=== PATIENT | male | born 1995 | race Two or more races ===

== ENCOUNTER 2023-12-22 15:47 | Emergency (ER) | payer SELFPAY ==
[2023-12-22 15:58] VITALS: BP 127/87; PULSE 77; TEMP 36.5; O2SAT 99; BMI 29.8
--- NOTE | 2023-12-22 16:16 | XR_ITS ---
The [address] [address] Patient Name: GERTRUDIS REINA MRN: [id number] date: 1995 Sex: M Assigned Patient Location: ED.MAIN Current Patient Location: ED.MAIN Accession/Order Number: [id number] Exam Date: 12/22/2023 16:25 Report Date: 12/22/2023 17:06 At the request of: SERGEY DENISE Procedure: XR elbow LT min 3V IMAGES REVIEWED: XR elbow LT min 3V COMPARISON: None available. CLINICAL INDICATION: Injury FINDINGS/IMPRESSION: No evidence of acute osseous abnormality of the left elbow. Electronically authenticated by: DASHA LI Date: 12/22/2023 17:06
--- NOTE | 2023-12-22 16:17 | ED.UPPEXIN1 ---
HPI - Extremity Injury (Upper) General Chief Complaint: Extremity Injury, Upper Stated Complaint: Upper Pain Time Seen by Provider: 12/22/23 16:02 Source: patient Mode of arrival: walk-in Limitations: no limitations History of Present Illness HPI narrative: 28 year old male presents to the ED for pain to his left posterior elbow. Onset was while lifting a box yesterday. He felt a pop. The pain now occurs only with certain movements. He has full ROM to the joint. Distal sensation intact. Related Data Home Medications ?Medication ?Instructions ?Recorded ?Confirmed No Known Home Medications 12/22/23 12/22/23 Allergies Allergy/AdvReac Type Severity Reaction Status Date / Time No Known Drug Allergies Allergy Verified 12/22/23 16:01 Review of Systems ROS Constitutional Denies: fever or chills Ears, nose, mouth, and throat Denies: neck pain Cardiovascular Denies: chest pain Respiratory Denies: shortness of breath Musculoskeletal Reports: extremity pain and joint pain; Denies: extremity swelling, limited range of motion or muscle weakness Integumentary/Breast Denies: rash or sores Neurological Denies: numbness in extremities or weakness in extremities PFSH PFS Medical History (Updated 12/22/23 @ 17:14 by Desirae Yeboah) No pertinent past medical history ?Z78.9 - Other specified health status (ICD-10) Surgical History (Updated 12/22/23 @ 16:07 by Robert Diaz) No pertinent past surgical history ?Z78.9 - Other specified health status (ICD-10) Exam Constitutional Vital Signs, click to edit/add: Last Vital Signs Temp 97.7 F 12/22/23 15:58 Pulse 77 12/22/23 15:58 Resp 20 12/22/23 15:58 BP 127/87 12/22/23 15:58 Pulse Ox 99 12/22/23 15:58 O2 Del Method Room Air 12/22/23 15:58 Common normals: no apparent distress and oriented x3 General appearance: cooperative Eye Common normals: no scleral icterus Neck & C-Spine Common normals: supple Respiratory Common normals: normal respiratory effort Effort & inspection: symmetric chest movement Cardio Common normals: regular rate Extremity Other: Full ROM to left elbow. No swelling or deformity noted. Tenderness to posterior mid elbow. No discoloration or wounds noted. Distal sensation intact. Radial pulse palpable. Full ROM to left hand. Course Vital Signs Vital signs: Vital Signs Temperature 97.7 F 12/22/23 15:58 Pulse Rate 77 12/22/23 15:58 Respiratory Rate 20 12/22/23 15:58 Blood Pressure 127/87 12/22/23 15:58 Pulse Oximetry 99 12/22/23 15:58 Oxygen Delivery Method Room Air 12/22/23 15:58 Temperature 97.7 F 12/22/23 15:58 Pulse Rate 77 12/22/23 15:58 Respiratory Rate 20 12/22/23 15:58 Blood Pressure 127/87 12/22/23 15:58 Pulse Oximetry 99 12/22/23 15:58 Oxygen Delivery Method Room Air 12/22/23 15:58 MDM - Extremity Injury (Upper) MDM Narrative Medical decision making narrative: X-ray showed no acute findings. Findings were discussed with the patient. Follow up with pcp and/or an orthopedist for a recheck, further evaluation and treatment. Tylenol and/or Motrin as directed for pain. Differential Diagnosis Differential diagnosis: Likely other (Elbow sprain/strain, fracture, dislocation) Medical Records Attestation: I reviewed the patient's medical records. Imaging Data XR elbow: Attestation: I have reviewed the pertinent imaging results. Radiologist's impression: IMAGES REVIEWED: XR elbow LT min 3V COMPARISON: None available. CLINICAL INDICATION: Injury FINDINGS/IMPRESSION: No evidence of acute osseous abnormality of the left elbow. Electronically authenticated by: DASHA LI Date: 12/22/2023 17:06 Discharge Plan Discharge Stand Alone Forms: Portal Instructions Chief Complaint: Extremity Injury, Upper Clinical Impression: Elbow injury Patient Disposition: Home, Self-Care Time of Disposition Decision: 17:14 Condition: Good Mode of Transportation: Private Vehicle Prescriptions / Home Meds: No Action No Known Home Medications Print Language: [place]i Instructions: Elbow Sprain (ED), Elbow Strain (ED) Referrals: Physician,Non-Staff, [Primary Care Provider] - 1 week Huey Castellano MD [Physician] - 1 week Discharge Date/Time: 12/22/23 17:30
== END 2023-12-22 17:30 | disposition home or self-care (01) ==
PROVIDERS: Emergency Provider Emergency Medicine
DX: S59.902A Unspecified injury of left elbow, initial encounter (principal); X50.9XXA Other and unspecified overexertion or strenuous movements or postures, initial encounter
CPT/HCPCS: 73080; 99283